=== PATIENT | male | born 1965 | race Asian ===

== ENCOUNTER 2025-05-29 02:48 | Emergency (ER) | payer OTHER ==
[~2025-05-29] VITALS: Ht 170.2 cm; Wt 68.0 kg
[2025-05-29 03:38] VITALS: BP 127/94; PULSE 71; RESP 16; O2SAT 99
[2025-05-29] MEDS: ACETAMINOPHEN 500 MG TABLET PO ONE (05:45)
== END 2025-05-29 06:55 ==
LOC: EMS 02:54
DX: S00.83XA Contusion of other part of head, initial encounter (principal); H11.32 Conjunctival hemorrhage, left eye; Y04.0XXA Assault by unarmed brawl or fight, initial encounter; Y93.89 Activity, other specified; Y92.89 Other specified places as the place of occurrence of the external cause; Y99.8 Other external cause status
CPT/HCPCS: 99283